=== PATIENT | female | born 1965 | race Caucasian/White ===

== ENCOUNTER 2017-12-03 23:16 | Inpatient (IN) | payer MEDICAID ==
[~2017-12-03] VITALS: Ht 167.6 cm; Wt 73.5 kg
[~2017-12-03 23:16] MED LIST: AMLO10TA12 PO; GABA300C10 PO; HYDR-2595 PO; LISI-287 PO; TRAZ150T79 PO
[2017-12-04 00:14] LABS: Basophils # (auto) 0 uL; Basophils % (auto) 0.5 % (0.0-2.0); Eosinophils # (auto) 0.1 uL; Eosinophils % (auto) 0.9 % (0.0-7.0); Hematocrit 47.1 % (36.0-46.0); Hemoglobin 15.4 g/dL (12.2-16.2); Lymphocytes # (auto) 2.3 uL; Lymphocytes % (auto) 26.6 % (10.0-50.0); Mean Corpuscular Hgb Conc. 32.7 g/dL (32.0-36.0); Mean Corpuscular Volume 88.7 fL (80.0-100.0); Monocytes # (auto) 0.7 uL; Monocytes % (auto) 8.3 % (0.0-12.0); Neutrophils # (auto) 5.4 uL; Neutrophils % (auto) 63.7 % (37.0-80.0); Nucleated Red Blood Cells % 0.4 %; Platelet Count (auto) 193 10^3/uL (140-450); Red Blood Cells 5.32 10^6/uL (4.0-5.20); Red Cell Distribution Width 16.2 % (11.8-14.3); White Blood Cell 8.5 10^3/uL (4.4-10.8)
[2017-12-04 00:38] LABS: Urine Bacteria NONE SEEN /hpf (None Seen); Urine Blood Negative /uL (Negative); Urine Hyaline Cast FEW /lpf (0 - 2); Urine Mucus FEW (None Seen); Urine Specific Gravity 1.029 (1.001-1.035); Urine WBC 1 /hpf (0 - 5)
[2017-12-04 00:41] LABS: Albumin 2.5 g/dL (3.4-5.0); Calcium 8.2 mg/dL (8.5-10.1); Potassium 5.2 mmol/L (3.5-5.1)
[2017-12-04 00:43] LABS: BUN/Creatinine Ratio 27.3
[2017-12-04] MEDS ORDERED: ONDANSETRON HCL 4 MG/2 ML VIAL IV ONE (00:45)
[2017-12-04] MEDS ORDERED: MORPHINE SULFATE 4 MG/ML SYR/VIAL IV ONE (00:45)
[2017-12-04 00:46] LABS: Bilirubin, Total 1.5 mg/dL (0.2-1.0)
[2017-12-04] MEDS ORDERED: VANCOMYCIN 1GM/250ML 250 ML IV ONE (02:15)
[2017-12-04] MEDS ORDERED: cefTRIAXone 1GM/50ML D5W 50 ML IV ONE (02:15)
[2017-12-04] MEDS ORDERED: FUROSEMIDE 20 MG/2 ML VIAL IV ONE ×2 (02:15→05:45)
[2017-12-04] MEDS ORDERED: cloNIDine HCL 0.1 MG TAB PO ONE (03:45)
[2017-12-04] MEDS ORDERED: HYDROcodone-ACET 5/325MG TAB PO PRN (05:15)
[2017-12-04] MEDS ORDERED: MORPHINE SULFATE 4 MG/ML SYR/VIAL IV PRN (05:15)
[2017-12-04] MEDS ORDERED: NITROGLYCERIN 0.4 MG SL TAB SL PRN (05:15)
[2017-12-04] MEDS ORDERED: ACETAMINOPHEN 325 MG TAB PO PRN (05:15)
[2017-12-04] MEDS ORDERED: cloNIDine HCL 0.1 MG TAB PO PRN ×2 (05:15→17:30)
[2017-12-04] MEDS ORDERED: ONDANSETRON HCL 4 MG/2 ML VIAL IV PRN (05:15)
[2017-12-04] MEDS ORDERED: hydrALAZINE HCL 20 MG/ML VL IV ONE (06:00)
[2017-12-04 09:00] VITALS: BP 154/75
[2017-12-04] MEDS ORDERED: LISINOPRIL 5 MG TAB PO SCH (10:00)
[2017-12-04] MEDS: ASPirin 81 mg TAB PO SCH (10:17)
[2017-12-04] MEDS: HCTZ 25 MG TAB PO SCH (10:17)
[2017-12-04] MEDS: FAMOTIDINE 20 MG TAB PO SCH ×2 (10:18→20:56)
[2017-12-04] MEDS: amLODIPine BESYLATE 5 MG TAB PO SCH (10:18)
[2017-12-04 13:00] VITALS: BP 155/99
[2017-12-04] MEDS: HYDROcodone-ACET 5/325MG TAB PO PRN ×3 (13:24→22:35)
[2017-12-04 14:43] LABS: Alcohol, Urine < 3.0 mg/dL (0-5)
[2017-12-04 14:44] LABS: Barbiturate Scree,Urine NEGATIVE (NEGATIVE); Opiate Scree,Urine NEGATIVE (NEGATIVE); Phencyclidine Screen, Urine NEGATIVE (NEGATIVE)
[2017-12-04 14:47] LABS: Amphetamine Screen, Urine POSITIVE (NEGATIVE); Benzodiazephine Screen, Urine NEGATIVE (NEGATIVE); Cannabinoid Screen, Urine NEGATIVE (NEGATIVE); Cocaine Screen, Urine NEGATIVE (NEGATIVE)
[2017-12-04 17:00] VITALS: BP 139/93
[2017-12-04] MEDS: FUROSEMIDE 20 MG/2 ML VIAL IV SCH (17:21)
[2017-12-04] MEDS: TEMAZEPAM 15 MG CAP PO PRN (20:56)
[2017-12-04 22:00] VITALS: BP 143/103
[2017-12-05 05:22] VITALS: BP 141/95
[2017-12-05] MEDS: FUROSEMIDE 20 MG/2 ML VIAL IV SCH (06:03)
[2017-12-05] MEDS: HYDROcodone-ACET 5/325MG TAB PO PRN ×3 (06:48→15:25)
[2017-12-05 07:25] LABS: Albumin 1.9 g/dL (3.4-5.0); Calcium 7.9 mg/dL (8.5-10.1); Potassium 3.9 mmol/L (3.5-5.1)
[2017-12-05 07:28] LABS: BUN/Creatinine Ratio 24.1
[2017-12-05 07:30] LABS: Bilirubin, Total 1.8 mg/dL (0.2-1.0); Total Protein 5.3 g/dL (6.4-8.2)
[2017-12-05 07:43] LABS: Basophils # (auto) 0 uL; Basophils % (auto) 0.2 % (0.0-2.0); Eosinophils # (auto) 0 uL; Eosinophils % (auto) 0.1 % (0.0-7.0); Lymphocytes # (auto) 1.1 uL
[2017-12-05 07:45] LABS: Hematocrit 54.9 % (36.0-46.0); Hemoglobin 17.9 g/dL (12.2-16.2); Lymphocytes % (auto) 7.4 % (10.0-50.0); Mean Corpuscular Hemoglobin 29.1 pg (28.0-32.0); Mean Corpuscular Hgb Conc. 32.7 g/dL (32.0-36.0); Mean Corpuscular Volume 89.2 fL (80.0-100.0); Monocytes # (auto) 1.1 uL; Monocytes % (auto) 7.4 % (0.0-12.0); Neutrophils # (auto) 12.2 uL; Neutrophils % (auto) 84.9 % (37.0-80.0); Nucleated Red Blood Cells % 0.5 %; Platelet Count (auto) 191 10^3/uL (140-450); Red Blood Cells 6.16 10^6/uL (4.0-5.20); Red Cell Distribution Width 16.7 % (11.8-14.3); White Blood Cell 14.3 10^3/uL (4.4-10.8)
[2017-12-05 08:33] VITALS: BP_SYST 124; BP_SYST 138; BP_DIAS 82; BP_DIAS 97
[2017-12-05] MEDS ORDERED: LISINOPRIL 5 MG TAB PO SCH (10:00)
[2017-12-05] MEDS: FAMOTIDINE 20 MG TAB PO SCH ×2 (10:11→21:33)
[2017-12-05] MEDS: ASPirin 81 mg TAB PO SCH (10:12)
[2017-12-05] MEDS: HCTZ 25 MG TAB PO SCH (10:13)
[2017-12-05] MEDS: amLODIPine BESYLATE 5 MG TAB PO SCH (10:13)
[2017-12-05] MEDS: LISINOPRIL 20 MG TAB PO SCH (10:14)
[2017-12-05 13:00] VITALS: BP 146/91
[2017-12-05 14:55] LABS: INR 1.61 (0.9-1.15); Partial Thromboplastin Time 33.6 sec (23.78-33.04); Prothrombin Time 16.8 sec (9.27-12.13)
[2017-12-05 17:00] VITALS: BP 141/95
[2017-12-05] MEDS: HYDROcodone-ACET 7.5/325MG TAB PO PRN ×2 (19:28→23:41)
[2017-12-05] MEDS: TEMAZEPAM 15 MG CAP PO PRN (21:33)
[2017-12-05 22:00] VITALS: BP 150/99
[2017-12-05 22:19] VITALS: BP 135/72
[2017-12-06] MEDS: HYDROcodone-ACET 7.5/325MG TAB PO PRN ×5 (04:59→22:12)
[2017-12-06 05:00] VITALS: BP 139/75
[2017-12-06 06:19] LABS: Basophils # (auto) 0 uL; Basophils % (auto) 0.2 % (0.0-2.0); Eosinophils # (auto) 0.1 uL; Eosinophils % (auto) 1.1 % (0.0-7.0); Hematocrit 49.1 % (36.0-46.0); Hemoglobin 15.9 g/dL (12.2-16.2); Lymphocytes # (auto) 1.3 uL; Lymphocytes % (auto) 11.4 % (10.0-50.0); Mean Corpuscular Hemoglobin 29.1 pg (28.0-32.0); Mean Corpuscular Hgb Conc. 32.4 g/dL (32.0-36.0); Mean Corpuscular Volume 89.6 fL (80.0-100.0); Monocytes % (auto) 8.7 % (0.0-12.0); Neutrophils # (auto) 9.2 uL; Neutrophils % (auto) 78.6 % (37.0-80.0); Nucleated Red Blood Cells % 0.1 %; Platelet Count (auto) 215 10^3/uL (140-450); Red Blood Cells 5.48 10^6/uL (4.0-5.20); Red Cell Distribution Width 16.6 % (11.8-14.3); White Blood Cell 11.7 10^3/uL (4.4-10.8)
[2017-12-06 06:35] LABS: BUN/Creatinine Ratio 28.1; Calcium 7.5 mg/dL (8.5-10.1); Potassium 3.6 mmol/L (3.5-5.1)
[2017-12-06 08:47] VITALS: BP 148/93
[2017-12-06] MEDS: LISINOPRIL 20 MG TAB PO SCH (09:29)
[2017-12-06] MEDS: amLODIPine BESYLATE 5 MG TAB PO SCH (09:29)
[2017-12-06] MEDS: FUROSEMIDE 40 MG TAB PO SCH (09:30)
[2017-12-06] MEDS: FAMOTIDINE 20 MG TAB PO SCH ×2 (09:30→22:12)
[2017-12-06] MEDS: ASPirin 81 mg TAB PO SCH (09:30)
[2017-12-06 13:05] VITALS: BP 134/80
[2017-12-06] MEDS ORDERED: POTASSIUM CHL 20 Meq TABLET PO ONE (14:15)
[2017-12-06] MEDS ORDERED: FUROSEMIDE 40 MG/4 ML VIAL IV ONE (14:15)
[2017-12-06] MEDS: ALBUMIN 25% 100 ML IV SCH ×2 (14:58→22:12)
[2017-12-06 16:00] LABS: Protein, Urine 31.4 mg/dL (0.0-11.9)
[2017-12-06 16:54] LABS: 24 Hr. Total Protein, Urine 565.2 mg/24 Hr (<149.1)
[2017-12-06 16:59] VITALS: BP 135/77
[2017-12-06 22:00] VITALS: BP 142/89
[2017-12-06] MEDS: TEMAZEPAM 15 MG CAP PO PRN (23:21)
[2017-12-07] VITALS (7 sets, daily range): BP systolic 108–159; BP diastolic 55–107
[2017-12-07] MEDS: HYDROcodone-ACET 7.5/325MG TAB PO PRN ×6 (02:12→23:58)
[2017-12-07] MEDS: ALBUMIN 25% 100 ML IV SCH (06:18)
[2017-12-07 07:14] LABS: Albumin 2.2 g/dL (3.4-5.0); BUN/Creatinine Ratio 24.1; Potassium 3.7 mmol/L (3.5-5.1)
[2017-12-07 07:17] LABS: Bilirubin, Total 1.1 mg/dL (0.2-1.0); Total Protein 5.3 g/dL (6.4-8.2)
[2017-12-07] MEDS: FUROSEMIDE 40 MG TAB PO SCH (09:43)
[2017-12-07] MEDS: FAMOTIDINE 20 MG TAB PO SCH ×2 (09:44→22:07)
[2017-12-07] MEDS: LISINOPRIL 20 MG TAB PO SCH (09:44)
[2017-12-07] MEDS: amLODIPine BESYLATE 5 MG TAB PO SCH (09:44)
[2017-12-07] MEDS: ASPirin 81 mg TAB PO SCH (09:45)
[2017-12-07] MEDS ORDERED: ALBUMIN 25% 100 ML IV ONE (11:15)
[2017-12-07] MEDS ORDERED: CARVEDILOL 3.125 MG TAB PO ONE (11:15)
[2017-12-07] MEDS ORDERED: POTASSIUM CHL 20 Meq TABLET PO ONE (11:15)
[2017-12-07] MEDS ORDERED: METOLAZONE 5 MG TAB PO ONE (11:15)
[2017-12-07] MEDS ORDERED: MORPHINE SULFATE 4 MG/ML SYR/VIAL IV PRN (11:15)
[2017-12-07] MEDS ORDERED: LACTULOSE 20Gm/30ML SOLN PO ONE (11:30)
[2017-12-07 14:35] LABS: Hepatitis A Ab IgM Negative; Hepatitis B Core IgM Negative; Hepatitis B Surface Antigen Negative (Negative); Hepatitis C Antibody Negative (Negative)
[2017-12-07] MEDS: SPIRONOLACTONE 25 MG TAB PO SCH (17:57)
[2017-12-07] MEDS: Pro-Stat SF 30ml Vanilla PO SCH (17:58)
[2017-12-07] MEDS: CARVEDILOL 3.125 MG TAB PO SCH (22:07)
[2017-12-07] MEDS: LACTULOSE 20Gm/30ML SOLN PO SCH (22:07)
[2017-12-08] MEDS: TEMAZEPAM 15 MG CAP PO PRN (01:39)
[2017-12-08] MEDS: HYDROcodone-ACET 7.5/325MG TAB PO PRN ×3 (04:41→13:40)
[2017-12-08 05:00] VITALS: BP 138/99
[2017-12-08] MEDS: SPIRONOLACTONE 25 MG TAB PO SCH (05:50)
[2017-12-08 07:02] LABS: Basophils # (auto) 0 uL; Basophils % (auto) 0.4 % (0.0-2.0); Eosinophils # (auto) 0.3 uL; Eosinophils % (auto) 3.7 % (0.0-7.0); Hematocrit 44.8 % (36.0-46.0); Hemoglobin 14.6 g/dL (12.2-16.2); Lymphocytes # (auto) 1.1 uL; Lymphocytes % (auto) 12.7 % (10.0-50.0); Mean Corpuscular Hemoglobin 28.8 pg (28.0-32.0); Mean Corpuscular Hgb Conc. 32.5 g/dL (32.0-36.0); Mean Corpuscular Volume 88.7 fL (80.0-100.0); Monocytes # (auto) 0.8 uL; Monocytes % (auto) 9.2 % (0.0-12.0); Neutrophils # (auto) 6.5 uL; Platelet Count (auto) 258 10^3/uL (140-450); Red Blood Cells 5.06 10^6/uL (4.0-5.20); Red Cell Distribution Width 17.1 % (11.8-14.3); White Blood Cell 8.7 10^3/uL (4.4-10.8)
[2017-12-08 07:13] LABS: Albumin 2.8 g/dL (3.4-5.0); Calcium 8.5 mg/dL (8.5-10.1); Potassium 3.9 mmol/L (3.5-5.1)
[2017-12-08 07:17] LABS: Bilirubin, Total 1.8 mg/dL (0.2-1.0); Total Protein 6.4 g/dL (6.4-8.2)
[2017-12-08] MEDS: Pro-Stat SF 30ml Vanilla PO SCH (07:40)
[2017-12-08 08:00] VITALS: BP 139/93
[2017-12-08 09:00] VITALS: BP 139/93
[2017-12-08] MEDS: FAMOTIDINE 20 MG TAB PO SCH (10:34)
[2017-12-08] MEDS: FUROSEMIDE 40 MG TAB PO SCH (10:35)
[2017-12-08] MEDS: LACTULOSE 20Gm/30ML SOLN PO SCH (10:35)
[2017-12-08] MEDS: amLODIPine BESYLATE 5 MG TAB PO SCH (10:36)
[2017-12-08] MEDS: CARVEDILOL 3.125 MG TAB PO SCH (10:37)
[2017-12-08] MEDS: ASPirin 81 mg TAB PO SCH (10:38)
[2017-12-08] MEDS: LISINOPRIL 20 MG TAB PO SCH (10:39)
[2017-12-08 13:00] VITALS: BP 150/93
[2017-12-08] MEDS ORDERED: SPIR25TA88 PO (14:31)
[2017-12-08] MEDS ORDERED: ENAL-3 PO (14:31)
[2017-12-08] MEDS ORDERED: CAR3125T PO (14:31)
[2017-12-08] MEDS ORDERED: FURO40TA4 PO (14:31)
[2017-12-08] MEDS ORDERED: PANT40TA2 PO (14:34)
[2017-12-08] MEDS ORDERED: PANTOPRAZOLE 40 MG TAB PO ONE (14:45)
[2017-12-08 15:13] VITALS: BP 156/90
== END 2017-12-08 17:25 | disposition home or self-care (01) | DRG 194 ==
LOC: ER 23:16 → EDBD 23:16 → WEST WING 23:17 → TELE-WESTW 12-05 01:15
PROVIDERS: ADMIT Nurse Practitioner; ATTEND Internal Medicine
DX: I11.0 Hypertensive heart disease with heart failure (principal); E43 Unspecified severe protein-calorie malnutrition; I42.7 Cardiomyopathy due to drug and external agent; E87.5 Hyperkalemia; I50.82 Biventricular heart failure; K72.90 Hepatic failure, unspecified without coma; E87.1 Hypo-osmolality and hyponatremia; F15.10 Other stimulant abuse, uncomplicated; F32.9 Major depressive disorder, single episode, unspecified; N28.9 Disorder of kidney and ureter, unspecified; I50.23 Acute on chronic systolic (congestive) heart failure; F17.210 Nicotine dependence, cigarettes, uncomplicated; I08.3 Combined rheumatic disorders of mitral, aortic and tricuspid valves; K57.30 Diverticulosis of large intestine without perforation or abscess without bleeding; Z90.49 Acquired absence of other specified parts of digestive tract
CPT/HCPCS: 36415; 71045; 74176; 76705; 80048; 80053; 80074; 80307; 81001; 82150; 82390; 82728; 83516; 83605; 83690; 83880; 84156; 84484; 85025; 85379; 85610; 85730; 86225; 86235; 87040; 93005; 93306; 93970; 96365; 96368; 96375; 96376; 97116; 97530; G0378; J0696; J2405; P9047

== ENCOUNTER → 2018-01-19 | Outpatient (CLI) | payer MEDICAID ==
[~2018-01-19] MED LIST changes: -AMLO10TA12 PO; +CAR3125T PO; +CARV12.544 PO; +ENAL-3 PO; +FURO40TA4 PO; -GABA300C10 PO; -HYDR-2595 PO; +IOHEXOL 350 MG/ML 100ML IJ ONE; +LIDOCAINE 2%HCL (LOCAL ANESTH.) INJ 20ML MDV ONE; -LISI-287 PO; +LISI-646 PO; +PANT40T PO; +PANT40TA2 PO; +SPIR25TA88 PO
[2018-01-19 09:00] VITALS: BP 156/88
[2018-01-19 09:25] VITALS: BP 151/87
[2018-01-19 12:08] LABS: Hematocrit 48.1 % (36.0-46.0); Hemoglobin 15.3 g/dL (12.2-16.2); Mean Corpuscular Hemoglobin 27.9 pg (28.0-32.0); Mean Corpuscular Hgb Conc. 31.7 g/dL (32.0-36.0); Mean Corpuscular Volume 87.9 fL (80.0-100.0); Platelet Count (auto) 285 10^3/uL (140-450); Red Blood Cells 5.47 10^6/uL (4.0-5.20); Red Cell Distribution Width 19.8 % (11.8-14.3); White Blood Cell 6.2 10^3/uL (4.4-10.8)
[2018-01-19 12:21] LABS: Basophils % (manual) 0 (0.0-2.0); Blast Cells 0; Metamyelocytes % 0; Myelocytes % 0; Promyelocytes % 0; Reactive Lymphocytes 0
[2018-01-19 12:23] LABS: INR 0.93 (0.9-1.15); Partial Thromboplastin Time 26.8 sec (23.78-33.04); Potassium 4.2 mmol/L (3.5-5.1)
[2018-01-19 12:26] LABS: BUN/Creatinine Ratio 27.4
[2018-01-19 13:10] LABS: Band Neutrophils % (manual) 1; Eosinophils % (manual) 9 (0-7); Lymphocytes % (manual) 45 (10.0-50.0); Monocytes % (manual) 7 (0-12)
== END | disposition home or self-care (01) ==
LOC: Rad HDHVI 08:52
PROVIDERS: ATTEND Internal Medicine
DX: Z01.818 Encounter for other preprocedural examination (principal); D64.9 Anemia, unspecified; R79.1 Abnormal coagulation profile; I11.0 Hypertensive heart disease with heart failure; I50.9 Heart failure, unspecified; I42.9 Cardiomyopathy, unspecified
CPT/HCPCS: 36415; 71046; 80048; 85007; 85027; 85610; 85730; 93005; G0463

== ENCOUNTER 2018-01-20 08:12 | Day surgery (SDC) | payer MEDICAID ==
[~2018-01-20] VITALS: Ht 167.6 cm; Wt 65.8 kg
[~2018-01-20 08:12] MED LIST changes: -CAR3125T PO; -IOHEXOL 350 MG/ML 100ML IJ ONE; -LIDOCAINE 2%HCL (LOCAL ANESTH.) INJ 20ML MDV ONE; -PANT40TA2 PO; -TRAZ150T79 PO
[2018-01-20] MEDS ORDERED: ANGIOMAX 250 MG VIAL IV ONE (08:56)
[2018-01-20] MEDS ORDERED: fentaNYL CITRATE 100 MCG/2 ML VL ONE (08:56)
[2018-01-20] MEDS ORDERED: MIDAZOLAM HCL 1MG/1ML-2 ML VIAL ONE (08:56)
[2018-01-20] MEDS ORDERED: SODIUM CHL 0.9% 0 ML ONE (08:57)
== END 2018-01-20 12:40 | disposition home or self-care (01) ==
LOC: CATH 08:12
PROVIDERS: ATTEND Internal Medicine
DX: I25.10 Atherosclerotic heart disease of native coronary artery without angina pectoris (principal); I42.9 Cardiomyopathy, unspecified; I27.20 Pulmonary hypertension, unspecified; F41.9 Anxiety disorder, unspecified; F32.9 Major depressive disorder, single episode, unspecified; Z80.8 Family history of malignant neoplasm of other organs or systems; I11.0 Hypertensive heart disease with heart failure; R56.9 Unspecified convulsions; Z79.899 Other long term (current) drug therapy
CPT/HCPCS: 93460; C1760; C1894; J1644; J3010; J7030; Q9967; 99152; 99153; A6257; C1751; J2250

== ENCOUNTER → 2019-09-15 | Outpatient (CLI) | payer MEDICAID ==
[~2019-09-15] VITALS: Ht 30.5 cm; Wt 0.5 kg
[2019-09-15] VITALS (7 sets, daily range): BP systolic 148–204; BP diastolic 110–147
[~2019-09-15] MED LIST changes: -ENAL-3 PO; +ENAL10TA13 PO; +cloNIDine HCL 0.1 MG TAB ONE; +cloNIDine HCL 0.1 MG TAB PO ONE
--- NOTE | 2019-09-15 12:30 | NUR ---
CLINIC PT ARRIVED TO THE [facility] FROM BACK OFFICE WITH ORDERS. DURING OFFICE VISIT PT B/P IS 209/149. A/OX4, AMBULATORY. BREATHING IS EVEN AND UNLABORED.
--- NOTE | 2019-09-15 12:52 | NUR ---
PT GIVEN 2 SCOOPS OF ARGINEXT BY LETHA NAVA
[2019-09-15 14:01] LABS: Basophils # (auto) 0 10 ^3/uL (0-0.2); Basophils % (auto) 0.7 % (0.0-2.0); Eosinophils # (auto) 0.2 10 ^3/uL (0-0.8); Eosinophils % (auto) 3.4 % (0.0-7.0); Hemoglobin 18.8 g/dL (12.2-16.2); Lymphocytes # (auto) 2.4 10 ^3/uL (0.4-5.4); Lymphocytes % (auto) 45.4 % (10.0-50.0); Mean Corpuscular Hemoglobin 32.2 pg (28.0-32.0); Mean Corpuscular Hgb Conc. 33.2 g/dL (32.0-36.0); Mean Corpuscular Volume 96.9 fL (80.0-100.0); Monocytes # (auto) 0.4 10 ^3/uL (0-1.3); Monocytes % (auto) 6.9 % (0.0-12.0); Neutrophils # (auto) 2.3 10 ^3/uL (1.6-8.6); Neutrophils % (auto) 43.6 % (37.0-80.0); Nucleated Red Blood Cells % 0.3 %; Platelet Count (auto) 218 10^3/uL (140-450); Red Blood Cells 5.85 10^6/uL (4.0-5.20); Red Cell Distribution Width 15.2 % (11.8-14.3); White Blood Cell 5.4 10^3/uL (4.4-10.8)
[2019-09-15 14:07] LABS: Hematocrit 56.7 % (36.0-46.0)
[2019-09-15 14:12] LABS: BUN/Creatinine Ratio 28.6; Calcium 9.1 mg/dL (8.5-10.1); Magnesium 2.3 mg/dL (1.6-2.6)
--- NOTE | 2019-09-15 16:22 | NUR ---
Discharge Instructions See e-MAR for any mediations given with this visit. Patient education given on disease process. Patient verbalized understanding. Previous labs reviewed. Patient discharged in stable condition with after care instructions and follow up appointment 1 WEEK. PT GIVEN EDUCATION ON B/P MONITORING AND MANAGEMENT. PT VERBALIZED UNDERSTANDING Addendum: 09/15/19 at 1730 by PAM PETERSON RN RN [place] [facility] CHANGES FOLLOWED STOP LASIX, START HCTZ 25MG PO DAILY, INCREASE ENALAPRIL TO 20MG BID
== END | disposition home or self-care (01) ==
LOC: CHF HDHVI 12:45
PROVIDERS: ATTEND Internal Medicine
DX: I10 Essential (primary) hypertension (principal)
CPT/HCPCS: 36415; 80048; 83735; 85025; G0463

== ENCOUNTER → 2019-11-21 | Outpatient (CLI) | payer MEDICAID ==
[~2019-11-21] MED LIST changes: -cloNIDine HCL 0.1 MG TAB ONE; -cloNIDine HCL 0.1 MG TAB PO ONE
== END | disposition home or self-care (01) ==
LOC: Rad HDHVI 13:07
PROVIDERS: ATTEND Internal Medicine
DX: I37.1 Nonrheumatic pulmonary valve insufficiency (principal); I51.7 Cardiomegaly; I50.23 Acute on chronic systolic (congestive) heart failure; R06.02 Shortness of breath
CPT/HCPCS: 93306

== ENCOUNTER → 2019-11-23 | Outpatient (CLI) | payer MEDICAID ==
[~2019-11-23] VITALS: Ht 30.5 cm; Wt 0.5 kg
[2019-11-23] VITALS (10 sets, daily range): BP systolic 162–255; BP diastolic 90–169
[~2019-11-23] MED LIST changes: +CARVEDILOL 3.125 MG TAB ONE; +IOHEXOL 350 MG/ML 100ML IJ ONE; +READI-CAT 2 (BARIUM SULF)(VANILLA SMOOTHIE) 450ML ONE; +cloNIDine HCL 0.1 MG TAB ONE; +cloNIDine HCL 0.1 MG TAB PO ONE
[2019-11-23] MEDS: CARVEDILOL 12.5 MG TAB PO ONE ×2 (13:30→13:49)
== END | disposition home or self-care (01) ==
LOC: Rad HDHVI 10:01
PROVIDERS: ATTEND Internal Medicine
DX: E27.49 Other adrenocortical insufficiency (principal); E27.8 Other specified disorders of adrenal gland; K57.30 Diverticulosis of large intestine without perforation or abscess without bleeding; K44.9 Diaphragmatic hernia without obstruction or gangrene; I51.7 Cardiomegaly; E11.9 Type 2 diabetes mellitus without complications; Z90.49 Acquired absence of other specified parts of digestive tract; M47.816 Spondylosis without myelopathy or radiculopathy, lumbar region; M48.061 Spinal stenosis, lumbar region without neurogenic claudication; R94.4 Abnormal results of kidney function studies
CPT/HCPCS: 36415; 74160; 82565; G0463; Q9967

== ENCOUNTER 2021-03-17 15:58 | Inpatient (IN) | payer MEDICAID ==
[~2021-03-17] VITALS: Ht 165.1 cm; Wt 66.3 kg
[~2021-03-17 15:58] MED LIST changes: -CARVEDILOL 3.125 MG TAB ONE; -IOHEXOL 350 MG/ML 100ML IJ ONE; -LISI-646 PO; +LISI20TA28 PO; -READI-CAT 2 (BARIUM SULF)(VANILLA SMOOTHIE) 450ML ONE; +SPIR25TA PO; -SPIR25TA88 PO; -cloNIDine HCL 0.1 MG TAB ONE; -cloNIDine HCL 0.1 MG TAB PO ONE
[2021-03-17] MEDS ORDERED: methylPREDNISolone SOD SUCC 125 MG/2 ML VL IV ONE (16:15)
[2021-03-17 16:57] LABS: Eosinophils # (auto) 0.1 10 ^3/uL (0-0.8); Eosinophils % (auto) 1.4 % (0.0-7.0); Nucleated Red Blood Cells % 0.2 %; White Blood Cell 6.6 10^3/uL (4.4-10.8)
[2021-03-17 16:59] LABS: Basophils # (auto) 0 10 ^3/uL (0-0.2); Basophils % (auto) 0.6 % (0.0-2.0); Hematocrit 55.8 % (36.0-46.0); Hemoglobin 18.5 g/dL (12.2-16.2); Lymphocytes # (auto) 1.6 10 ^3/uL (0.4-5.4); Lymphocytes % (auto) 24.7 % (10.0-50.0); Mean Corpuscular Hemoglobin 32.1 pg (28.0-32.0); Mean Corpuscular Hgb Conc. 33.2 g/dL (32.0-36.0); Mean Corpuscular Volume 96.4 fL (80.0-100.0); Monocytes # (auto) 0.4 10 ^3/uL (0-1.3); Monocytes % (auto) 5.6 % (0.0-12.0); Neutrophils # (auto) 4.5 10 ^3/uL (1.6-8.6); Neutrophils % (auto) 67.7 % (37.0-80.0); Red Blood Cells 5.79 10^6/uL (4.0-5.20); Red Cell Distribution Width 14.6 % (11.8-14.3)
[2021-03-17 17:23] LABS: Anion Gap 6 (5-15); Carbon Dioxide 22 mmol/L (21-32); Chloride 111 mmol/L (98-107); Glucose 82 mg/dL (74-106); Potassium 4.8 mmol/L (3.5-5.1); Sodium 139 mmol/L (136-145)
[2021-03-17 17:24] LABS: Alanine Aminotransferase 80 U/L (13-56); Albumin 3.3 g/dL (3.4-5.0); Alkaline Phosphatase 167 U/L (45-117); Aspartate Aminotransferase 65 U/L (15-37); BUN/Creatinine Ratio 26.8; Bilirubin, Total 0.9 mg/dL (0.2-1.0); Blood Urea Nitrogen 22 mg/dL (7-18); Calcium 9.3 mg/dL (8.5-10.1); GFR African American 93 mL/min; GFR Non-African American 77 mL/min; Total Protein 7.1 g/dL (6.4-8.2)
[2021-03-17 17:35] LABS: Urine Bacteria FEW /hpf (None Seen); Urine Blood Negative /uL (Negative); Urine Mucus FEW (None Seen); Urine Specific Gravity 1.023 (1.001-1.035); Urine WBC 2 /hpf (0 - 5)
[2021-03-17] MEDS ORDERED: cloNIDine HCL 0.1 MG TAB ONE (17:37)
[2021-03-17] MEDS ORDERED: IOHEXOL 350 MG/ML 100ML IJ ONE (17:39)
[2021-03-17] MEDS ORDERED: cloNIDine HCL 0.1 MG TAB PO ONE (17:45)
[2021-03-17] MEDS ORDERED: ENOXAPARIN SOD 100 MG/1 ML SYRINGE SC ONE (17:45)
[2021-03-17 17:59] LABS: Alcohol, Urine < 3.0 mg/dL (0-10); Amphetamine Screen, Urine POSITIVE (NEGATIVE); Barbiturate Scree,Urine NEGATIVE (NEGATIVE); Benzodiazephine Screen, Urine NEGATIVE (NEGATIVE); Cannabinoid Screen, Urine NEGATIVE (NEGATIVE); Cocaine Screen, Urine NEGATIVE (NEGATIVE); Opiate Scree,Urine NEGATIVE (NEGATIVE); Phencyclidine Screen, Urine NEGATIVE (NEGATIVE)
[2021-03-17] MEDS ORDERED: hydrALAZINE HCL 20 MG/ML VL IV ONE (20:45)
[2021-03-17] MEDS ORDERED: NITROGLYCERIN 0.4 MG SL TAB SL PRN (21:15)
[2021-03-17] MEDS ORDERED: MORPHINE SULFATE INJECTION 2 MG/ML SYRG IV PRN (21:15)
[2021-03-17] MEDS ORDERED: ONDANSETRON HCL 4 MG/2 ML VIAL IV PRN (21:15)
[2021-03-17] MEDS: CARVEDILOL 12.5 MG TAB PO SCH (21:45)
[2021-03-17] MEDS ORDERED: LISINOPRIL 20 MG TAB PO SCH (22:00)
[2021-03-17] MEDS ORDERED: ENALAPRIL MALEATE 10 MG TAB PO SCH (22:00)
[2021-03-17] MEDS ORDERED: ATORVASTATIN 20 MG TAB PO SCH (22:00)
[2021-03-18] MEDS ORDERED: HYDROcodone-ACET 5/325MG TAB PO PRN (04:00)
[2021-03-18] MEDS ORDERED: hydrALAZINE HCL 20 MG/ML VL IV PRN (04:00)
[2021-03-18 05:42] VITALS: BP 150/92
[2021-03-18] MEDS: SPIRONOLACTONE 25 MG TAB PO SCH ×2 (06:41→17:42)
[2021-03-18 08:30] VITALS: BP 157/115
[2021-03-18] MEDS: CARVEDILOL 12.5 MG TAB PO SCH (09:53)
[2021-03-18] MEDS ORDERED: FUROSEMIDE 40 MG TAB PO SCH (10:00)
[2021-03-18] MEDS ORDERED: PANTOPRAZOLE 40 MG TAB PO SCH (10:00)
[2021-03-18] MEDS ORDERED: ASPirin-EC 81 mg tab PO SCH (10:00)
[2021-03-18] MEDS ORDERED: ENOXAPARIN SOD 40 MG/0.4 ML SYRINGE SC SCH (10:00)
[2021-03-18 11:28] LABS: Basophils # (auto) 0 10 ^3/uL (0-0.2); Basophils % (auto) 0.1 % (0.0-2.0); Eosinophils # (auto) 0 10 ^3/uL (0-0.8); Hematocrit 50.8 % (36.0-46.0); Hemoglobin 16.6 g/dL (12.2-16.2); Lymphocytes # (auto) 1.2 10 ^3/uL (0.4-5.4); Lymphocytes % (auto) 13.8 % (10.0-50.0); Mean Corpuscular Hemoglobin 31.5 pg (28.0-32.0); Mean Corpuscular Hgb Conc. 32.7 g/dL (32.0-36.0); Mean Corpuscular Volume 96.4 fL (80.0-100.0); Monocytes # (auto) 0.4 10 ^3/uL (0-1.3); Monocytes % (auto) 4.2 % (0.0-12.0); Neutrophils % (auto) 81.9 % (37.0-80.0); Red Blood Cells 5.27 10^6/uL (4.0-5.20); Red Cell Distribution Width 14.7 % (11.8-14.3); White Blood Cell 8.6 10^3/uL (4.4-10.8)
[2021-03-18 11:31] LABS: Potassium 3.8 mmol/L (3.5-5.1)
[2021-03-18 11:38] LABS: BUN/Creatinine Ratio 29.1
[2021-03-18 12:30] VITALS: BP 138/87
[2021-03-18] MEDS ORDERED: CHOLECALCIFEROL (VITD3) 2,000 UNIT CAP/TAB PO SCH (15:15)
[2021-03-18] MEDS ORDERED: DexAMETHasone SOD PHOS 10MG/1ML VIAL INJ IV SCH (15:30)
[2021-03-18 17:00] VITALS: BP 144/85
[2021-03-18] MEDS ORDERED: ASCORBIC ACID 500 MG TAB PO SCH (22:00)
[2021-03-19] MEDS ORDERED: ZINC SULFATE 220mg CAP or TAB PO SCH (10:00)
== END 2021-03-18 19:00 | disposition left against medical advice (07) | DRG 137 ==
LOC: EDBD 15:58 → ER 15:58 → OVERFLOW 21:04 → TELE-EAST 03-18 05:12
PROVIDERS: ADMIT Hospitalist; ATTEND Hospitalist
DX: U07.1 COVID-19 (principal); J96.01 Acute respiratory failure with hypoxia; J12.82 Pneumonia due to coronavirus disease 2019; I21.4 Non-ST elevation (NSTEMI) myocardial infarction; J44.0 Chronic obstructive pulmonary disease with (acute) lower respiratory infection; E11.9 Type 2 diabetes mellitus without complications; I50.9 Heart failure, unspecified; I11.0 Hypertensive heart disease with heart failure; F17.210 Nicotine dependence, cigarettes, uncomplicated; F19.90 Other psychoactive substance use, unspecified, uncomplicated; F32.A Depression, unspecified; Z53.21 Procedure and treatment not carried out due to patient leaving prior to being seen by health care provider; Z82.49 Family history of ischemic heart disease and other diseases of the circulatory system; Z90.49 Acquired absence of other specified parts of digestive tract
CPT/HCPCS: 36415; 36600; 71045; 71275; 80048; 80053; 80307; 81001; 82805; 82962; 83880; 84484; 85025; 85379; 87426; 93005; 96365; 96372; 96375; G0378; J1100